=== PATIENT | male | born 1975 | race Caucasian/White ===

== ENCOUNTER 2024-03-16 10:11 | Observation (INO) ==
[2024-03-16 11:09] LABS: BASOPHILS % (AUTO) 0.6 %; EOSINOPHILS # (AUTO) 0.1 10^3/uL (0.0-0.7); EOSINOPHILS % (AUTO) 1.6 %; LYMPHOCYTES # (AUTO) 0.8 10^3/uL (1.5-3.5); LYMPHOCYTES % (AUTO) 15.1 %; MEAN CORPUSCULAR HEMOGLOBIN 34.2 pg (27.0-31.0); MEAN CORPUSCULAR HGB CONC 34.1 g/dL (32.0-36.0); MEAN CORPUSCULAR VOLUME 100.5 fL (80.0-94.0); MEAN PLATELET VOLUME 10.6 fL (7.4-11.4); MONOCYTES # (AUTO) 0.6 10^3/uL (0.0-1.0); MONOCYTES % (AUTO) 11.1 %; NEUTROPHILS # (AUTO) 3.6 10^3/uL (1.5-6.6); NEUTROPHILS % (AUTO) 71.2 %; PLT - PLATELET COUNT 91 10^3/uL (130-450); RED BLOOD COUNT 4.38 10^6/uL (4.70-6.10); RED CELL DISTRIBUTION WIDTH 12.5 % (12.0-15.0)
[2024-03-16 11:14] LABS: ALBUMIN/GLOBULIN RATIO 1.1 (1.0-2.2); BILIRUBIN,TOTAL 2.4 mg/dL (0.2-1.0); CALCIUM 8.8 mg/dL (8.5-10.3); CREATININE 0.5 mg/dL (0.6-1.3); POTASSIUM 3.8 mmol/L (3.5-4.5); TOTAL PROTEIN 7.5 g/dL (6.4-8.9)
--- NOTE | 2024-03-16 11:19 | ED Physician Documentation ---
PD HPI UPPER EXT INJURY Stated complaint Stated Complaint: RT HAND CAT BITE Chief complaint Chief Complaint: Ext Problem History obtained from History obtained from: Patient Additonal information Additional information: 48-year-old vvouq-texn-ondhvluy male with no reported major medical history presents by vehicle from home for 4 days of worsening right hand redness and swelling. Patient states that 4 days ago he had to quickly oyster picker his cat and take it outside. The cat was startled and bit him on the hand. The cat is an indoor/outdoor cat and does not have any vaccinations. Patient states that prior to this incident the cat has been behaving normally. Today he is having trouble fully extending his wrist due to pain. He states that his sister is a physician and recommended he come for evaluation. Review of Systems Status of ROS: 10 or more systems reviewed and unremarkable except as noted in history and below Integumentary/Breast Reports: Rash, Redness and Skin swelling Meds/Allgy Home Medications Ambulatory Orders Medication Instructions Recorded Confirmed amoxicillin 875 mg-potassium 1 tab PO BID #20 tabs 03/15/24 03/15/24 clavulanate 125 mg tablet Allergies Allergies Allergy/AdvReac Type Severity Reaction Status Date / Time No Known Drug Allergies Allergy Verified 03/16/24 10:21 [facility] Social History Social History (Updated 03/15/24 @ 11:25 by Camilla Kyle, LOADMASTER, ENP) Smoking Status: Unknown if ever smoked Relationship: Do you feel safe in your home environment?: Yes Suffered physical, verbal, emotional, or financial abuse?: No Exam Constitutional normal general appearance HENMT normocephalic and head/scalp atraumatic Eyes PERRL, EOMs intact bilaterally and conjunctivae normal Respiratory breath sounds equal bilaterally, normal respiratory effort and clear to auscultation bilaterally Cardiovascular normal heart rate noted and regular rhythm noted Extremities RUE swelling, decreased extension due to pain 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, no sensory deficits noted, speech normal and coordination normal Psychiatry mental status grossly normal, oriented x3 and thought process normal Results Vitals Vitals: Vital Signs - 24 hr 03/16/24 10:15 03/16/24 10:48 03/16/24 12:37 Temperature 36.7 C 37.1 C Temperature Source Temporal Artery Scan Temporal Artery Scan Pulse Rate 91 H 92 H 84 Respiratory Rate 18 18 Blood Pressure 135/101 H 133/101 H 122/89 O2 Saturation 96 97 95 O2 Source Room air Room air Room air Pain Intensity 4 2 03/16/24 12:47 03/16/24 13:17 Temperature Temperature Source Pulse Rate 90 87 Respiratory Rate Blood Pressure 130/98 H 139/92 H O2 Saturation 96 96 O2 Source Room air Room air Pain Intensity 0 0 Oxygen O2 Source Room air Labs Labs: Laboratory Tests 03/16/24 10:45 WBC 5.0 RBC 4.38 L Hgb 15.0 Hct 44.0 MCV 100.5 H MCH 34.2 H MCHC 34.1 RDW 12.5 Plt Count 91 L MPV 10.6 Neut # (Auto) 3.6 Lymph # (Auto) 0.8 L Mingo # (Auto) 0.6 Eos # (Auto) 0.1 Baso # (Auto) 0.0 Absolute Nucleated RBC 0.00 Nucleated RBC % 0.0 Sodium 134 L Potassium 3.8 Chloride 99 L Carbon Dioxide 26 Anion Gap 9.0 BUN 8 Creatinine 0.5 L Estimated GFR (MDRD) 179 Glucose 107 H Calcium 8.8 Total Bilirubin 2.4 H AST 56 H ALT 46 Alkaline Phosphatase 122 H Total Protein 7.5 Albumin 4.0 Globulin 3.5 Albumin/Globulin Ratio 1.1 PD Medical Decision Making ED course Complexity details: reviewed results, re-evaluated patient, considered differential, d/w patient and d/w family ED course: [id number] patient with right hand swelling and pain after being bitten by unvaccinated cat. No reported risk factors for rabies in this cat. It seems to be a pet. [employer] took down info and will pass this to animal control and health department. Patient has difficulty in extension of wrist due to the amount of swelling. Based on the extent of swelling and cellulitis a CT will be ordered to assess for underlying abscess. Laboratory work is reviewed, no significant abnormalities identified. CT shows cellulitis without signs of osteomyelitis or abscess. IV Unasyn ordered for coverage for animal bite cellulitis. Patient to be admitted for observation. Discharge Plan Discharge Patient Disposition: ED Place in Observation Clinical Impression: Cat bite, Wound infection Prescriptions: No Action amoxicillin-pot clavulanate 875-125 mg tablet 1 tab PO BID Qty: 20 0RF Print Language: Estonian Stand Alone Forms: PCP List
[2024-03-16] MEDS ORDERED: iohexoL-300 100 ML VIAL ONE (11:57)
[2024-03-16] MEDS: iohexoL-300 100 ML VIAL IVP ONE (13:31)
--- NOTE | 2024-03-16 13:51 | CT Report ---
PROCEDURE: CT Upper Extremity RT W INDICATIONS: CAT BITE, EXTENSOR SWELLING TECHNIQUE: CT of the right hand was obtained after administration of intravenous contrast, according to standard protocol. COMPARISON: None. FINDINGS: Bones: Small ossification about the ulnar styloid, representing prior injury. Small subchondral cysti c changes at the distal ulna, favoring degenerative. Moderate degenerative changes of the distal radi oulnar joint. No acute fracture or dislocation. No cortical erosion or periosteal thickening to sugge st osteomyelitis. Soft tissue findings: Diffuse soft tissue swelling of the wrist and hand. No drainable fluid collecti on. The extensor and the flexor tendons are grossly unremarkable. No significant tenosynovitis of the flexor or extensor tendon. IMPRESSION: 1.Diffuse soft tissue swelling of the wrist and hand. No drainable fluid collection. No significant t enosynovitis in the wrist and hand. 2.No osteomyelitis. Reviewed by: Emily Herrera MD on 03/16/2024 1:49 PM PST Approved by: Emily Herrera MD on 03/16/2024 1:49 PM PST Station ID: [id number]
[2024-03-16] MEDS: AMPICILLIN/SULBACTAM 3 GM in SODIUM CHLORIDE 0.9% MINIBAG 100 ML IV STA (14:18)
--- NOTE | 2024-03-16 14:46 | HISTORY & PHYSICAL EXAMINATION ---
Chief Complaint Chief Complaint Chief Complaint: hand pain History of Present Illness Admitted From Admitted From:: home History Obtained From Records Reviewed: Expanse History obtained from: patient, mom and Dr. Millan Exam Limitations: none History of Present Illness HPI Comment/Other: 48-year-old [id number]-gmmerotn male who has no major medical illnesses. Specifically he does not have a history of hyperglycemia, immunocompromise state. Does have a history of hemochromatosis but has only been phlebotomized once. He admits that he really does not do much follow-up for that. Not on any medications for that. He was bitten by his cat 4 days ago. And since that time his hand has been getting more tender and more swollen. The cat goes inside and outside and does not have vaccines are up-to-date. He startled the cat in picking it up and that is when it bit him. The cat's behavior is otherwise normal. He still sees that cat and the cat is still acting normally. Has been instructed by the health department to get the cat inside, put in a cage, and quarantine at until enough time is passed to verify whether this cat could have rabies or not. He went to see the walk-in clinic yesterday, and saw a provider Camilla Kyle. He was placed on Augmentin. Today, the pain in his hand is continuing to increase as well as the swelling and the redness. He denies fever, chills, rigors. His sister is a physician and he called her to ask for advice. She recommended he come to the emergency room. In the emergency room he had a temperature of 36.7. Heart rate 91. Respirations 18. Blood pressure 135/101. 96% on room air. On examination he can still extend at the wrist but his wrist is swollen, stiff, red and limits flexion. He can't flex his MCP and PIP. Cellulitis appears to be evident with induration and redness around the bites at the MCP of 2nd and 3rd fingers and extending along the dosrum of his hand distally and proximally up above the wrist. The ER provider did a CT looking for abscess and there is none. We discussed the case. He does not have a fever, he does not have tachycardia, and his CAT scan does not show abscess. But his cellulitis is worse than yesterday so I will be placing him in observation status for failed outpatient management and see if he improves overnight with antibiotics. Was transferred from the emergency room to [facility]. When I met him on [facility] he feels like the flexion of his wrist is already improving. Review Of systems: BRITTNI is without any visual changes, deafness. Denies problems with teeth, swallowing. No allergies. Pul[place] mild cough that he attributes to chest living here. But no fevers no sweats no phlegm production. Cardiac: No chest pain, palpitations, shortness of breath. No pedal edema. No orthopnea. Cardiovascular endurance is excellent. GI: Occasional bloating, occasional loose stools. He attributes that to irritable bowel syndrome but no formal diagnosis.Few weeks ago he had an episode of moderate discomfort in the mid axillary line in the mid abdomen of the right side. It went away on its own and has not had any recurrence. : No urgency, frequency, flank pain, hematuria Joint: Occasional low back spasm. If he is not careful and stretches at his legs too quickly his calves will cramp tremendously. He has a chronic right foot drop. Denies knee pain, hip pain. Currently his right wrist and fingers are very tender and swollen. Skin: He has some new scaly hard lesions on his right hand over the dorsum near the fourth and fifth MCPs. They showed up on day and now the seem to be fading but he does know what they are. His left index finger also has developed a hard, black-goodrich scaling that he does know what that is. Psych: Tends to be anxious and a worrier. He feels like he will get a little bit agitated and "freak out" if it is a big situation. But no panic attacks. Not depressed left ever want to kill himself. Denies hallucinations. Endocrine: Denies cold or heat intolerance. No unexpected weight changes. No sweats. No polydipsia, polyuria, polyphagia. 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 Denies history of seizures, memory changes, personality changes. He does have the right leg focal foot drop from his back surgery. Meds/Allgy Home Medications Ambulatory Orders Medication Instructions Recorded Confirmed amoxicillin 875 mg-potassium 1 tab PO BID #20 tabs 03/15/24 03/15/24 clavulanate 125 mg tablet Allergies Allergies Allergy/AdvReac Type Severity Reaction Status Date / Time No Known Drug Allergies Allergy Verified 03/16/24 10:21 [facility] Medical History Medical History (Updated 03/16/24 @ 16:01 by Carolyn Go MD) Chronic bilateral low back pain with right-sided sciatica much better after surgery but still gets flares and "can't move sometimes" Umbilical hernia no symptoms so no surgery yet HTN (hypertension) off and on. Was on meds for a while but able to come off them when BP came down (due to reduced pain in back, stress of divorce) IBS (irritable bowel syndrome) Hemochromatosis Right foot drop Surgical History Surgical History (Updated 03/16/24 @ 15:44 by Carolyn Go MD) H/O lumbar discectomy Family History Family History (Updated 03/16/24 @ 15:48 by Carolyn Go MD) Mother Autosomal dominant hereditary hemochromatosis Microscopic colitis Father Well adult exam Brother Well adult exam Sister Well adult exam Sister Well adult exam Daughter Well adult exam Son Well adult exam Social History Social History (Updated 03/16/24 @ 16:07 by Carolyn Go MD) Smoking Status: Never smoker Second hand tobacco smoke exposure: No Do you dip or chew tobacco?: No Do you vape?: No Patient requests smoking cessation consult: No Initiate information on smoking cessation: No Living arrangement: At home Marital Status: Living Condition: Alone Support Person: Yes Relationship: Parent Living Situation Details: Lives in his own home on [address]. Mom and dad live in [place]. [place] over a year ago since he was too far from family. Kids live in [place] and in contact occasionally. 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 Dresses himself. Feeds himself. No durable medical equipment. Drives a car. Exam Exam A lean and lanky white male who looks stated age. Tanned. Slightly fast, pressured speech. Mom at the bedside. Constitutional normal general appearance and no apparent distress (Pain is anywhere between a 2 out of a 10, or a 4 out of a 10.) [facility] normocephalic, head/scalp atraumatic and hearing grossly normal bilaterally Eyes PERRL, EOMs intact bilaterally, conjunctivae normal and no scleral icterus Neck/C-Spine supple Lymph no lymphadenopathy noted Chest inspection of chest normal Respiratory breath sounds equal bilaterally, normal respiratory effort, clear to auscultation bilaterally, no wheezes, no rales and no retractions Cardiovascular normal heart rate noted and regular rhythm noted Gastrointestinal abdomen normal to inspection, abdomen soft to palpation, nontender to palpation, nontender to percussion, nondistended, normoactive bowel sounds, no hepatosplenomegaly and no masses Genitourinary no CVA tenderness Extremities The joints of the hands, shoulders, knees and feet are normal. However the right hand has puncture wounds. 2 over the dorsum of the MCP. 1 over the dorsum of the third MCP. No drainage or purulence. Induration and redness of the skin on top of the entire hand extending down the fingertips, and proximately up beyond the wrist. He cannot flex fingers at the PIPs. Can extend at the wrist and is just starting to be able to flex at the wrist. He said that has improved since he got his dose of antibiotic in the emergency room. Palm of the hand is uninvolved other than for mild swelling. 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 And he has onychomycosis of the left index finger nail. Sepsis Event Note (H) Evaluation Current Stage of Sepsis: Ruled out Conclusion/Plan Problem List (1) Cat bite of right hand with infection: Plan: White cell count is 5.0. He does not have a fever. Low-grade tachycardia to 91 or 92 in the ER. Overall he does not seem to have systemic effects of this and just a localized tender right hand with inability to flex his fingers or his wrist. He is failed outpatient management with 2 doses of Augmentin. I agree with the emergency room provider that he warrants observation status with IV dosing of medication. Already starting to improve just a tad. Plan: At least 2 more doses of Unasyn and I will reassess for possible discharge tomorrow. Recheck CBC and BMP I am glad has been able to catch the cat and will hopefully keep him in quarantine for enough duration of time to establish whether rabies is an issue. Tetanus given in the ER (2) Failure of outpatient treatment: Plan: As above. (3) HTN (hypertension): Plan: As below. He says that his blood pressure came back down once he was through the stress of his divorce years ago. And his back pain was controlled after surgery. He has not taken any medication for years. Plan: Monitor every shift. I will give those blood pressure readings to him so we can follow-up with the primary care provider to see if he needs antihypertensives. (4) Wart of hand: Plan: Scaling, yellow, hard. 3 lesions over the right hand near the fourth and fifth fingers. I recommend [id number]-omi-[id number] medication. If this does not work he can see dermatology. He says are already starting to fade on their own and he may not need intervention. (5) Onychomycosis: Plan: So far only of the left index finger. This is more of a cosmetic problem. Is not causing any pain or lack of ability of that left hand. When he establishes himself with a PCP, they may be able to provide the correct nail montenegrin or treatment for this. (6) Hemochromatosis: Plan: He describes being phlebotomized once in the past. He thinks it was many years ago. Current hemoglobin is 15. That is the only hemoglobin we have in the EMR since he recently moved to the [place]. I would recommend that he get this checked once a year to make sure that this does not get out of control or lead to cirrhosis. Lab Results 03/16/24 10:45 03/16/24 10:45
[2024-03-16] MEDS ORDERED: ONDANSETRON 4 MG/2 ML VIAL IVP PRN (15:29)
[2024-03-16] MEDS ORDERED: SODIUM CHLORIDE FLUSH 0.9% 10 ML SYRINGE IVP PRN (15:29)
[2024-03-16] MEDS ORDERED: ONDANSETRON ODT 4 MG TABLET TL PRN (15:29)
--- NOTE | 2024-03-16 16:32 | PHARMACY PROGRESS NOTE ---
Best Possible Medication History Admit Date and Time: 03/16/24 [id number] Home Medications Medication Instructions Recorded Confirmed Type amoxicillin 875 mg-potassium 1 tab PO BID #20 tabs 03/15/24 03/16/24 Rx clavulanate 125 mg tablet Processed by: Pharmacy (Medication reconciliation completed by pharmacy sales assistantSilvia) Medications reviewed in ED?: No Medication History completed: Yes Patient Interview: Completed Secondary Source(s): Insurance records [facility] Statement: As the person ultimately responsible for medication therapy, providers are able to order a medication from an existing home medication list in [facility] via the "Reconcile Routine" prior to Confirmation of that medication by product support sales representative. Such practice is discouraged except when the physician, in their clinical judgment, deems that a medical need exists for a medication without regard to previous use.
[2024-03-16] MEDS: SODIUM CHLORIDE FLUSH 0.9% 10 ML SYRINGE IVP SCH (18:44)
[2024-03-16] MEDS: IBUPROFEN 600 MG TABLET PO PRN (18:44)
[2024-03-16] MEDS: oxyCODONE 5 MG TABLET PO PRN (18:44)
[2024-03-16] MEDS: AMPICILLIN/SULBACTAM 1.5 GM in SODIUM CHLORIDE 0.9% MINIBAG 100 ML IV SCH (23:13)
[2024-03-16] MEDS: ACETAMINOPHEN 325 MG TABLET PO PRN (23:53)
[2024-03-17 06:11] LABS: BASOPHILS % (AUTO) 0.9 %; EOSINOPHILS # (AUTO) 0.1 10^3/uL (0.0-0.7); EOSINOPHILS % (AUTO) 2.7 %; HCT - HEMATOCRIT 43.1 % (42.0-52.0); HGB - HEMOGLOBIN 14.4 g/dL (14.0-18.0); LYMPHOCYTES # (AUTO) 1.3 10^3/uL (1.5-3.5); LYMPHOCYTES % (AUTO) 28.1 %; MEAN CORPUSCULAR HGB CONC 33.4 g/dL (32.0-36.0); MEAN CORPUSCULAR VOLUME 101.7 fL (80.0-94.0); MEAN PLATELET VOLUME 10.8 fL (7.4-11.4); MONOCYTES # (AUTO) 0.4 10^3/uL (0.0-1.0); MONOCYTES % (AUTO) 9.9 %; NEUTROPHILS # (AUTO) 2.6 10^3/uL (1.5-6.6); PLT - PLATELET COUNT 89 10^3/uL (130-450); RED BLOOD COUNT 4.24 10^6/uL (4.70-6.10); RED CELL DISTRIBUTION WIDTH 12.5 % (12.0-15.0); WHITE BLOOD COUNT 4.5 x10^3/uL (4.8-10.8)
[2024-03-17 06:23] LABS: CALCIUM 8.8 mg/dL (8.5-10.3); CREATININE 0.6 mg/dL (0.6-1.3); POTASSIUM 3.5 mmol/L (3.5-4.5)
--- NOTE | 2024-03-17 08:10 | Discharge Summary ---
"Discharge Summary Admit Date: 03/16/24 Discharge Date: 03/17/24 Discharging Provider: Carolyn Go MD Primary Care Provider: No PCP yet Code Status: Attempt Resuscitation DIAGNOSES Discharge Diagnoses with Status of Each Condition: 1. Cat bite of right hand with infection 2. Failure of outpatient treatment 3. Hypertension 4. Wart of hand 5. onychomycosis 6. Macrocytosis with a history of alcohol abuse HPI History of Present Illness: 48-year-old [id number]-hcqesmgu male who has no major medical illnesses. Specifically he does not have a history of hyperglycemia, immunocompromise state.However he does have a history of alcohol abuse. He initially denied but shared that information with the nurse who did his intake. He also denied any history of alcohol withdrawals. But he tells me that he had withdrawal and required hospitalization at [facility].He thinks his last drink was March 09 where he drank some beer. Does have a history of hemochromatosis but has only been phlebotomized once. He admits that he really does not do much follow-up for that. Not on any medications for that. He was bitten by his cat 4 days ago. And since that time his hand has been getting more tender and more swollen. The cat goes inside and outside and does not have vaccines are up-to-date. He startled the cat in picking it up, and that is when it bit him. The cat's behavior is otherwise normal. He still sees that cat and the cat is still acting normally. Has been instructed by the health department to get the cat inside, put in a cage, and quarantine at until enough time is passed to verify whether this cat could have rabies or not. He went to see the walk-in clinic yesterday, and saw a provider Camilla Kyle. He was placed on Augmentin. Today, the pain in his hand is continuing to increase as well as the swelling and the redness. He denies fever, chills, rigors. His sister is a physician and he called her to ask for advice. She recommended he come to the emergency room. In the emergency room he had a temperature of 36.7. Heart rate 91. Respirations 18. Blood pressure 135/101. 96% on room air. On examination he can still extend at the wrist but his wrist is swollen, stiff, red and limits flexion. He can't flex his MCP and PIP. Cellulitis appears to be evident with induration and redness around the bites at the MCP of 2nd and 3rd fingers and extending along the dosrum of his hand distally and proximally up above the wrist. The ER provider did a CT looking for abscess and there is none. We discussed the case. He does not have a fever, he does not have tachycardia, and his CAT scan does not show abscess. But his cellulitis is worse than yesterday so I will be placing him in observation status for failed outpatient management and see if he improves overnight with antibiotics. Was transferred from the emergency room to [facility]. When I met him on [facility] he feels like the flexion of his wrist is already improving. CONSULTS | PROCEDURES Procedures: CT of Hand IMPRESSION: 1.Diffuse soft tissue swelling of the wrist and hand. No drainable fluid collection. No significant tenosynovitis in the wrist and hand. 2.No osteomyelitis HOSPITAL COURSE Hospital Course: The patient was given a dose of Unasyn in the emergency room. And then transferred to [facility]. His exam had already started improving and that he had been unable to flex at the wrist. He was now able to slightly flex at the wrist. He was still not able to completely flex his fingers and close his hand. By the morning of discharge he was able to flex and extend his fingers almost to near normal. Flexion at the wrist had improved as well. The redness and heat and swelling on the dorsum of the hand has subsided substantially. There is still warmth and redness of the hand. By now he has received 3 doses of Unasyn. I gave the patient 1 more dose of Unasyn at noon and he was stable for discharge.This morning till this afternoon, there was significant improvement in flexion extension of the hand, wrist. Redness is now only over a small patch of skin on the dorsum of the skin below the second and third MCP. Review of systems he complained of new growth on the dorsum of the right hand that was primarily over the fifth finger area. They were warts. He also pointed out the left hand index finger nailbed disruption that is onychomycosis. He should follow-up with those problems in the primary care office. He has been instructed to stop drinking. I am also asking him to do a vitamin and thiamine for supplementation in the face of macrocytosis on labs. I am asking him to establish himself with a primary care provider. Be seen in the next 1 to 2 weeks. I am also asking him to finish his Augmentin that was started in the outpatient setting and add an bhgb-mdu-flzcvrg probiotic. Blood pressure was 131/89, pulse 79, respirations 18, temperature 37. O2 sat 99%. He is 5 foot 7 inches tall, 74 kg. An alert oriented white male who looks stated age. Supple neck. Clear lungs. Regular rate and rhythm. Abdomen that soft and nontender. Ambulating in his room without any difficulty to get up to go to the bathroom and get back in bed. Using the TV remote. Able to use his hands for cutting food and feeding himself without any difficulty. The right hand still has redness and some slight edema and warmth over the dorsum of the hand. The palm of the hand is much less edema. He is able to flex his fingers and extend them. He is able to flex and extend at the wrist. 3 small puncture wounds. 2 over the dorsum of the MCP. 1 over the dorsum of the third MCP. No drainage. No purulence. ALLERGIES Allergies Allergy/AdvReac Type Severity Reaction Status Date / Time No Known Drug Allergies Allergy Verified 03/16/24 10:21 MEDICATIONS Ambulatory Orders Medication Instructions Recorded Confirmed amoxicillin 875 mg-potassium 1 tab PO BID #20 tabs 03/15/24 03/16/24 clavulanate 125 mg tablet LABS 03/17/24 05:09 03/17/24 05:09 SEPSIS Current Stage of Sepsis: Ruled out Discharge Plan Discharge Patient Disposition: 01 Home, Self Care Condition: Stable Medically Cleared Date:: 03/17/24 Prescriptions: Continued amoxicillin-pot clavulanate 875-125 mg tablet 1 tab PO BID Qty: 20 0RF Diet: Regular Interventions: Belongings Inventory Last Done: 03/17/24 12:36 Discharge Last Done: 03/17/24 12:36 Discharge Checklist - Nursing Last Done: 03/17/24 12:36 Health Concerns: You had been bitten by a cat 4 days prior to admission. The bite was getting more swollen, bladder. Increasing tenderness. The bite was over the top of the second and third fingers of your right hand. The hand was swollen, and you could not flex your fingers or your wrist. You were seen in the walk-in clinic and started on antibiotics. You had a couple of doses of medicine and in spite of that the hand was getting worse so you came to the emergency room. In the emergency room a CAT scan was done to make sure there was no abscesses in your hand. There were none. You were placed in observation to see if a few doses of intravenous antibiotics would help. It has helped. You are now ready to go back home and you will resume the Augmentin you were started on. Assessment: Patient is alert, oriented to person, place, time and situation Plan of Treatment: 1. Please establish yourself with a primary care provider and see a provider in the next 1 to 2 weeks. 2. Complete the antibiotic therapy that was prescribed to you in the emergency room. It is Augmentin tablets, twice a day. 3. Augmentin can sometimes cause diarrhea, and I would recommend that you take an xigs-xil-axhlftd probiotic twice a day while on Augmentin. 4. 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 5. Lab work here shows that you have probable changes related to drinking too much alcohol. We see that indirectly when red cells are very large. We use a measurement called mean corpuscular volume (MCV) and yours is 101. Normal is up to 94. Please start thiamine 100 mg a day. I usually would want you to also take B12 in the form of a vitamin but you have hemochromatosis and vitamins have iron. You do not need iron. So, if you could buy byvm-opw-rvdnxun B12 solution. It is a drop in the mouth on a daily basis. Dose would be 500 mcg daily. And take Thiamine tablet 100 mg or less, daily. Do not drink alcohol at all. Print Language: [place] Patient Instructions: ED Bite Cat Stand Alone Forms: PCP List"
[2024-03-17 08:50] LABS: AMPHETAMINE SCREEN,URINE NEGATIVE (NEGATIVE); BENZODIAZEPINES SCREEN, URINE NEGATIVE (NEGATIVE); COCAINE SCREEN URINE NEGATIVE (NEGATIVE); METHADONE SCREEN, URINE NEGATIVE (NEGATIVE); METHAMPHETAMINES SCREEN, URINE NEGATIVE (NEGATIVE); OPIATE SCREEN, URINE NEGATIVE (NEGATIVE); THC CANNABINOID SCREEN, URINE POSITIVE (NEGATIVE); TRICYCLIC ANTIDEPRESSANT,URINE NEGATIVE (NEGATIVE)
[2024-03-17 08:51] LABS: BARBITURATE SCREEN,UR NEGATIVE (NEGATIVE); BUPRENORPHINE SCREEN, URINE NEGATIVE (NEGATIVE); OXYCODONE SCREEN, URINE POSITIVE (NEGATIVE)
[2024-03-17 12:18] VITALS: BP 163/95; TEMP 98.1; O2SAT 96
== END 2024-03-17 12:37 | disposition home or self-care (01) ==
LOC: MS2 10:11 → ED 10:11 → MS2 15:08
PROVIDERS: ADMIT Specialist; ATTEND Specialist
DX: R00.0 Tachycardia, unspecified; B35.1 Tinea unguium; S61.451A Open bite of right hand, initial encounter; E83.119 Hemochromatosis, unspecified; I10 Essential (primary) hypertension; B07.9 Viral wart, unspecified; L03.113 Cellulitis of right upper limb; Y92.009 Unspecified place in unspecified non-institutional (private) residence as the place of occurrence of the external cause; W55.01XA Bitten by cat, initial encounter